=== PATIENT | male | born 1945 | race Caucasian/White ===

== ENCOUNTER 2020-01-16 07:54 | Outpatient (REF) | payer MEDICARE, SELFPAY ==
[2020-01-16 11:00] LABS: MANUAL DIFF FLAG NO
[2020-01-16 11:01] LABS: Basophils Percent Auto 0.5 % (0-2); Eosinophils Absolute Auto 0.3 X10*3/uL (0.0-0.4); Eosinophils Percent Auto 3.2 % (0-4); Hematocrit 39.8 % (42-52); Hemoglobin 14.1 g/dl (14.0-18.0); Imm Gran Abs Auto 0.03 X10*3/uL (0.00-0.03); Imm Gran Pct Auto 0.4 % (0.0-0.4); Lymphocytes Absolute Auto 2.8 X10*3/uL (1.2-4.9); Lymphocytes Percent Auto 35.9 % (20-40); Mean Corpuscular HGB Conc 35.4 g/dl (31.0-36.0); Mean Corpuscular Hemoglobin 30.9 pg (27.0-33.0); Mean Corpuscular Volume 87.3 fL (80-98); Mean Platelet Volume 10.2 fL (9.4-12.4); Monocytes Absolute Auto 0.6 X10*3/uL (0.1-1.2); Monocytes Percent Auto 7.8 % (2-11); Neutrophils Percent Auto 52.2 % (45-73); Platelet Count 219 X10*3/uL (160-400); Red Blood Count 4.56 X10*6/uL (4.60-5.80); Red Cell Distribution Width 11.9 % (11.0-16.0); White Blood Count 7.7 X10*3/uL (4.8-10.8)
[2020-01-16 11:37] LABS: Alanine Aminotransferase 31 U/L (0-40); Albumin Level 4.2 g/dL (3.5-5.0); Alkaline Phosphatase 53 U/L (39-117); Anion Gap 11 (12-20); Aspartate Amino Transferase 23 U/L (5-37); Bilirubin Total 0.9 mg/dL (0.0-1.0); Blood Urea Nitrogen 15 mg/dL (9-16); Carbon Dioxide 30 mmol/L (22-29); Chloride 104 mmol/L (96-108); Cholesterol 155 mg/dL; Estimated Glomerular Filt Rate > 60; Glucose Fasting 110 mg/dL (60-99); HDL Cholesterol 45 mg/dL; LDL Cholesterol Calculated 92 mg/dl; Potassium 4.3 mmol/l (3.3-5.1); Sodium 141 mmol/L (135-145); Total Protein 6.9 g/dL (6.5-8.0); Triglycerides 94 mg/dL
[2020-01-16 12:03] LABS: Prostate Specific Antigen < 0.05 ng/mL (<0.05-4.0); Vitamin D 25-OH Total 45.1 ng/mL (>30)
[2020-01-16 12:07] LABS: Vitamin B12 586 pg/mL (200-900)
== END 2020-01-16 07:55 | disposition home or self-care (01) ==
LOC: HO.MANLDS 07:54
PROVIDERS: PCP Internal Medicine; Visit Provider Internal Medicine
DX: Z00.00 Encounter for general adult medical examination without abnormal findings (principal)
CPT/HCPCS: 36415; 80053; 80061; 82306; 82607; 84153; 85025

== ENCOUNTER 2021-01-20 09:42 | Outpatient (REF) | payer MEDICARE, SELFPAY ==
[2021-01-20 10:58] LABS: MANUAL DIFF FLAG NO
[2021-01-20 11:00] LABS: Basophils Percent Auto 0.4 % (0-2); Eosinophils Absolute Auto 0.2 X10*3/uL (0.0-0.4); Eosinophils Percent Auto 2.8 % (0-4); Hematocrit 38.1 % (42.0-52.0); Hemoglobin 13.7 g/dl (14.0-18.0); Imm Gran Abs Auto 0.02 X10*3/uL (0.00-0.03); Imm Gran Pct Auto 0.3 % (0.0-0.4); Lymphocytes Absolute Auto 2.1 X10*3/uL (1.2-4.9); Lymphocytes Percent Auto 30.5 % (20-40); Mean Corpuscular Hemoglobin 31.4 pg (27.0-33.0); Mean Corpuscular Volume 87.4 fL (80.0-98.0); Mean Platelet Volume 10.2 fL (9.4-12.4); Monocytes Absolute Auto 0.6 X10*3/uL (0.1-1.2); Monocytes Percent Auto 8.2 % (2-11); Neutrophils Absolute Auto 3.9 x10*3/uL (2.0-8.3); Neutrophils Percent Auto 57.8 % (45-73); Platelet Count 210 X10*3/uL (160-400); Red Blood Count 4.36 X10*6/uL (4.60-5.80); White Blood Count 6.7 X10*3/uL (4.8-10.8)
[2021-01-20 11:35] LABS: Alanine Aminotransferase 37 U/L (0-40); Albumin Level 4.3 g/dL (3.5-5.0); Alkaline Phosphatase 56 U/L (39-117); Anion Gap 13 (12-20); Aspartate Amino Transferase 27 U/L (5-37); Bilirubin Total 0.7 mg/dL (0.0-1.0); Blood Urea Nitrogen 18 mg/dL (9-16); Calcium 9.5 mg/dL (8.4-10.2); Carbon Dioxide 26 mmol/L (22-29); Chloride 107 mmol/L (96-108); Estimated Glomerular Filt Rate > 60; Glucose Fasting 126 mg/dL (60-99); Potassium 4.8 mmol/L (3.3-5.1); Sodium 141 mmol/L (135-145)
[2021-01-20 11:57] LABS: Prostate Specific Antigen < 0.05 ng/mL (<0.05-4.0); Vitamin D 25-OH Total 36.5 ng/mL (>30)
[2021-01-20 12:04] LABS: Vitamin B12 589 pg/mL (200-900)
== END 2021-01-20 09:43 | disposition home or self-care (01) ==
LOC: HO.MANLDS 09:42
PROVIDERS: PCP Internal Medicine; Visit Provider Internal Medicine
DX: Z00.00 Encounter for general adult medical examination without abnormal findings (principal); Z12.5 Encounter for screening for malignant neoplasm of prostate
CPT/HCPCS: 36415; 80053; 82306; 82607; 84153; 85025

== ENCOUNTER 2021-02-04 19:55 | Outpatient (REF) | payer MEDICARE, SELFPAY | END 2021-02-04 19:56 | disposition home or self-care (01) | LOC: HO.LNP 19:55 | PROVIDERS: Visit Provider Physician Assistant | DX: J02.8 Acute pharyngitis due to other specified organisms (principal) | CPT/HCPCS: 87071 ==

== ENCOUNTER 2021-10-16 08:09 | Outpatient (REF) | payer MEDICARE, SELFPAY ==
[2021-10-16 11:15] LABS: MANUAL DIFF FLAG NO
[2021-10-16 11:37] LABS: Basophils Percent Auto 0.5 % (0-2); Eosinophils Absolute Auto 0.2 X10*3/uL (0.0-0.4); Eosinophils Percent Auto 2.4 % (0-4); Hemoglobin 14.5 g/dl (14.0-18.0); Imm Gran Abs Auto 0.02 X10*3/uL (0.00-0.03); Imm Gran Pct Auto 0.3 % (0.0-0.4); Lymphocytes Absolute Auto 2.8 X10*3/uL (1.2-4.9); Lymphocytes Percent Auto 37.3 % (20-40); Mean Corpuscular HGB Conc 36.3 g/dl (31.0-36.0); Mean Corpuscular Volume 85.7 fL (80.0-98.0); Mean Platelet Volume 10.8 fL (9.4-12.4); Monocytes Absolute Auto 0.6 X10*3/uL (0.1-1.2); NRBC Pct Auto 0.3 /100WBC (0.0-0.2); Neutrophils Absolute Auto 3.9 x10*3/uL (2.0-8.3); Neutrophils Percent Auto 51.5 % (45-73); Platelet Count 215 X10*3/uL (160-400); Red Blood Count 4.67 X10*6/uL (4.60-5.80); White Blood Count 7.5 X10*3/uL (4.8-10.8)
[2021-10-16 12:09] LABS: Alanine Aminotransferase 29 U/L (0-40); Albumin Level 4.3 g/dL (3.5-5.0); Alkaline Phosphatase 58 U/L (39-117); Anion Gap 20 (12-20); Aspartate Amino Transferase 28 U/L (5-37); Bilirubin Total 1.1 mg/dL (0.0-1.0); Blood Urea Nitrogen 15 mg/dL (9-16); Calcium 9.3 mg/dL (8.4-10.2); Carbon Dioxide 21 mmol/L (22-29); Chloride 106 mmol/L (96-108); Cholesterol 164 mg/dL; Estimated Glomerular Filt Rate > 60; Glucose Random 123 mg/dL (60-115); HDL Cholesterol 45 mg/dL; LDL Cholesterol Calculated 98 mg/dl; Potassium 4.4 mmol/L (3.3-5.1); Sodium 143 mmol/L (135-145); Total Protein 7.1 g/dL (6.5-8.0); Triglycerides 106 mg/dL
[2021-10-16 12:15] LABS: Prostate Specific Antigen < 0.05 ng/mL (<0.05-4.0); Thyroid Stimulating Hormone 0.87 uIU/mL (0.32-4.0)
== END 2021-10-16 08:10 | disposition home or self-care (01) ==
LOC: HO.MANLDS 08:09
PROVIDERS: Visit Provider Internal Medicine
DX: Z12.5 Encounter for screening for malignant neoplasm of prostate (principal); G47.30 Sleep apnea, unspecified; R03.0 Elevated blood-pressure reading, without diagnosis of hypertension
CPT/HCPCS: 36415; 80053; 80061; 84153; 84443; 85025

== ENCOUNTER 2022-06-02 10:46 | Outpatient (REF) | payer MEDICARE, SELFPAY ==
[2022-06-02 12:56] LABS: MANUAL DIFF FLAG NO
[2022-06-02 13:08] LABS: Basophils Percent Auto 0.4 % (0-2); Eosinophils Absolute Auto 0.2 X10*3/uL (0.0-0.4); Eosinophils Percent Auto 2.6 % (0-4); Hematocrit 41.9 % (42.0-52.0); Hemoglobin 14.9 g/dl (14.0-18.0); Imm Gran Abs Auto 0.03 X10*3/uL (0.00-0.03); Imm Gran Pct Auto 0.4 % (0.0-0.4); Lymphocytes Absolute Auto 2.4 X10*3/uL (1.2-4.9); Lymphocytes Percent Auto 31.1 % (20-40); Mean Corpuscular HGB Conc 35.6 g/dl (31.0-36.0); Mean Corpuscular Hemoglobin 30.8 pg (27.0-33.0); Mean Corpuscular Volume 86.6 fL (80.0-98.0); Mean Platelet Volume 10.3 fL (9.4-12.4); Monocytes Absolute Auto 0.6 X10*3/uL (0.1-1.2); Monocytes Percent Auto 7.2 % (2-11); Neutrophils Absolute Auto 4.5 x10*3/uL (2.0-8.3); Neutrophils Percent Auto 58.3 % (45-73); Platelet Count 227 X10*3/uL (160-400); Red Blood Count 4.84 X10*6/uL (4.60-5.80); Red Cell Distribution Width 12.2 % (11.0-16.0); White Blood Count 7.7 X10*3/uL (4.8-10.8)
[2022-06-02 13:42] LABS: Alanine Aminotransferase 26 U/L (0-40); Albumin Level 4.3 g/dL (3.5-5.0); Alkaline Phosphatase 65 U/L (39-117); Anion Gap 12 (12-20); Aspartate Amino Transferase 20 U/L (5-37); Bilirubin Total 1.2 mg/dL (0.0-1.0); Blood Urea Nitrogen 14 mg/dL (9-16); Calcium 9.5 mg/dL (8.4-10.2); Carbon Dioxide 31 mmol/L (22-29); Chloride 107 mmol/L (96-108); Cholesterol 167 mg/dL; Estimated Glomerular Filt Rate > 60; Glucose Random 114 mg/dL (60-115); HDL Cholesterol 46 mg/dL; LDL Cholesterol Calculated 101 mg/dl; Potassium 4.3 mmol/L (3.3-5.1); Sodium 146 mmol/L (135-145); Total Protein 6.8 g/dL (6.5-8.0); Triglycerides 102 mg/dL
[2022-06-02 14:10] LABS: Prostate Specific Antigen < 0.10 ng/mL (<0.05-4.0); Thyroid Stimulating Hormone 0.33 uIU/mL (0.32-4.0); Vitamin B12 609 pg/mL (200-900); Vitamin D 25-OH Total 42.2 ng/mL (>30)
== END 2022-06-02 10:47 | disposition home or self-care (01) ==
LOC: HO.MANLDS 10:46
PROVIDERS: Visit Provider Internal Medicine
DX: Z00.00 Encounter for general adult medical examination without abnormal findings (principal); Z12.5 Encounter for screening for malignant neoplasm of prostate; E78.00 Pure hypercholesterolemia, unspecified; E55.9 Vitamin D deficiency, unspecified; R53.83 Other fatigue
CPT/HCPCS: 36415; 80053; 80061; 82306; 82607; 84153; 84443; 85025

== ENCOUNTER 2024-01-23 14:45 | Outpatient (REF) | payer MEDICARE, SELFPAY ==
[2024-01-23 18:20] LABS: MANUAL DIFF FLAG NO
[2024-01-23 18:37] LABS: Basophils Absolute Auto 0.1 X10*3/uL (0.0-0.2); Basophils Percent Auto 0.6 % (0-2); Eosinophils Absolute Auto 0.2 X10*3/uL (0.0-0.4); Eosinophils Percent Auto 2.1 % (0-4); Hematocrit 41.8 % (42.0-52.0); Hemoglobin 15.3 g/dl (14.0-18.0); Imm Gran Abs Auto 0.02 X10*3/uL (0.00-0.03); Imm Gran Pct Auto 0.2 % (0.0-0.4); Lymphocytes Absolute Auto 2.7 X10*3/uL (1.2-4.9); Mean Corpuscular HGB Conc 36.6 g/dl (31.0-36.0); Mean Corpuscular Hemoglobin 31.7 pg (27.0-33.0); Mean Corpuscular Volume 86.5 fL (80.0-98.0); Mean Platelet Volume 10.7 fL (9.4-12.4); Monocytes Absolute Auto 0.7 X10*3/uL (0.1-1.2); Monocytes Percent Auto 7.7 % (2-11); Neutrophils Absolute Auto 4.8 x10*3/uL (2.0-8.3); Neutrophils Percent Auto 57.4 % (45-73); Platelet Count 208 X10*3/uL (160-400); Red Blood Count 4.83 X10*6/uL (4.60-5.80); Red Cell Distribution Width 11.9 % (11.0-16.0); White Blood Count 8.4 X10*3/uL (4.8-10.8)
[2024-01-23 18:46] LABS: Alanine Aminotransferase 31 U/L (0-40); Albumin Level 4.3 g/dL (3.5-5.0); Alkaline Phosphatase 62 U/L (39-117); Anion Gap 13 (12-20); Aspartate Amino Transferase 28 U/L (5-37); Bilirubin Total 0.7 mg/dL (0.0-1.0); Blood Urea Nitrogen 13 mg/dL (9-16); Calcium 9.5 mg/dL (8.4-10.2); Carbon Dioxide 28 mmol/L (22-29); Chloride 105 mmol/L (96-108); Estimated Glomerular Filt Rate > 60; Glucose Random 170 mg/dL (60-115); Potassium 3.8 mmol/L (3.3-5.1); Sodium 142 mmol/L (135-145); Total Protein 7.1 g/dL (6.5-8.0)
[2024-01-24 07:18] LABS: Estimated Average Glucose 111 mg/dL; Hemoglobin A1C 139.9515 umol/L; Hemoglobin A1c % 5.5 % (<6.0); Total Hemoglobin (HGBA1C) 3789.6495 umol/L
== END 2024-01-23 14:46 | disposition home or self-care (01) ==
LOC: HO.MANLDS 14:45
PROVIDERS: Visit Provider Internal Medicine
DX: R73.9 Hyperglycemia, unspecified (principal); R03.0 Elevated blood-pressure reading, without diagnosis of hypertension
CPT/HCPCS: 36415; 80053; 83036; 85025

== ENCOUNTER 2024-05-30 14:44 | Outpatient (REF) | payer MEDICARE, SELFPAY ==
--- OUTSIDE RECORDS SUMMARY | 2024-05-30 17:19 | XMS_ITS | Continuity of Care Document ---
Author Organization [facility], [facility] Address [address] [place] [address] Assessment Encounter Date Assessment Date Assessment LastModified by Organization Details LastModified Time 05/30/2024 05/30/2024 [id number] [place] [id number] ([employer]) MDM MODERATE MUST MEET 2 OUT OF 3 ELEMENTS: PROBLEMS, DATA OR RISK ELEMENT 1: PROBLEMS ADDRESSED 1 OR MORE CHRONIC ILLNESS WITH EXACERBATION OR 2 OR MORE STABLE CHRONIC ILLNESSES OR 1 UNDIAGNOSED NEW PROBLEM OR 1 ACUTE ILLNESS W/SYMPTOMS OR 1 ACUTE COMPLICATED INJURY ELEMENT 2: DATA MUST MEET 1 OF 3 CATEGORIES CATEGORY 1: REVIEW OF PRIOR EXTERNAL NOTES, REVIEW OF RESULTS, ORDERING OF EACH TEST, ASSESSMENT REQUIRING INDEPENDENT HISTORIAN OR CATEGORY 2: INDEPENDENT INTERPRETATION OF TESTS BY ANOTHER PHYSICIAN OR SPECIALIST OR CATEGORY 3: DISCUSSION OF MGT OR TEST INTERPRETATION W/EXTERNAL PHYSICIAN OR SPECIALIST ELEMENT 3: RISK RISK OF COMPLICATIONS AND/OR MORBIDITY OR MORTALITY OF PATIENT MANAGEMENT PROVIDER MUST THOROUGHLY DOCUMENT EACH ELEMENT THAT IS COVERED Not available 05/30/2024 14:33:27 Plan of Treatment Reminders Order Date Submit Date Provider Last Modified By Organization Details Last Modified Time Details Appointments FOLLOW UP 15 2024 02:15P M DR RICHARDS Not available Not available Not available Lab CMP, serum or plasma 2024 025 [facility], [address] [place] [address], [id number], 05/30/2024 14:32:08 CBC w/ auto diff 2024 025 [facility], [address] [place] [address], [id number], 05/30/2024 14:32:08 lipid panel, serum 2024 025 [facility], [address] [facility], [place], [address], 05/30/2024 14:32:08 PSA, serum or plasma 2024 [facility], [address], [place], [address], 05/30/2024 14:32:08 Referral None recorded . Procedures None recorded . Surgeries None recorded . Imaging None recorded . Medication Orders None recorded . Patient TargetsNo targets recorded. Patient Instructions Encounter Date Encounter Id Patient Instructions Last Modified By Organization Details Last Modified Time 05/30/2024 [id number] hip arthritis: care instructions Not available 05/30/2024 14:30:45 Reason for Referral None Reported. Problems Name Problem SNOMED Code Status Onset Date Resolution Date Notes Provider Name and Address Organization Details Recorded Time Osteoarthriti s 851613400 Active 2020 Not Available [facility] 3 20:15:59 Osteoarthriti s of hip 735970012 Active 2020 Not Available [facility] 3 20:15:59 Sleep apnea 05410389 Active 2021 Sue vargas, [facility] 5 11:24:02 Increased blood pressure 42439693 Active 2021 Sue Stinson null, [facility] 5 11:24:02 COVID-19 549346135 Active 2021 Sue Stinson null, [facility] 5 11:24:09 Dementia 58711916 Active 2022 Sue Stinson null, [facility] 5 11:24:02 Altered mental status 406534081 Active 2022 Sue Stinson null, [facility] 5 11:24:02 Hyperglycemia 39105007 Active 2022 Sue Stinson null, [facility] 5 11:24:02 Low back strain 904584144 Active 2022 Sue vargas, [facility] 5 11:24:09 Cough 29370723 Active 2022 Sue vargas [facility] 5 11:24:09 Acute bronchitis 99212356 Active 2022 Sue vargas, [facility] 5 11:24:09 Acute sinusitis 24936357 Active 2023 Sue vargas, [facility] 5 11:24:09 Problem Notes None recorded. Medical Equipment None Reported. Allergies No known drug allergies Medications Name Sig Start Date Stop Date Status Note LastModified by Organization Details LastModified Time cyclobenzap rine 10 mg tablet TAKE 1 TABLET BY MOUTH EVERY DAY IN THE EVENING FOR 10 DAYS 06/01 completed Not Available Not Available Not Available prednisone 10 mg tablet PLEASE SEE ATTACHED FOR DETAILED DIRECTION S 01/22 completed Not Available Not Available Not Available etodolac 200 mg capsule TAKE 1 CAPSULE BY MOUTH TWICE DAILY WITH MEALS 10/29 completed Not Available Not Available Not Available azithromyci n 250 mg tablet TAKE 2 TABLETS (500 MG) BY ORAL ROUTE ONCE DAILY FOR 1 DAY THEN 1 TABLET (250 MG) BY ORAL ROUTE ONCE DAILY FOR 4 DAYS 08/18 completed Not Available Not Available Not Available benzonatate 200 mg capsule TAKE 1 CAPSULE BY MOUTH THREE TIMES A DAY NEEDED FOR 10 DAYS 12/08 completed Not Available Not Available Not Available hydrocodone 5 mg-acetamin ophen 325 mg tablet TAKE 1 TABLET BY MOUTH EVERY 6 HOURS FOR 7 DAYS 10/29 completed Not Available Not Available Not Available donepezil 10 mg tablet TAKE 1 TABLET BY MOUTH EVERY DAY active Not Available Not Available No t Available meloxicam 15 mg tablet Take 1 tablet every day by oral route for 30 days. 05/16 completed Not Available Not Available Not Available tramadol 50 mg tablet TAKE 1 TABLET BY MOUTH EVERY 6 HOURS NEEDED FOR PAIN 10/14 completed Not Available Not Available Not Available amoxicillin 875 mg tablet TAKE 1 TABLET BY MOUTH EVERY 12 HOURS FOR 7 DAYS 01/22 completed Not Available Not Available Not Available ciprofloxac in 0.3 % eye drops 10/29 completed Not Available Not Available Not Available diclofenac potassium 50 mg tablet TAKE 1 TABLET BY MOUTH TWICE DAILY FOR 14 DAYS 02/04 completed Not Available Not Available Not Available codeine 10 mg-guaifene sin 100 mg/5 mL oral liquid TAKE 10 ML BY MOUTH EVERY 4 HOURS FOR 7 DAYS 08/18 completed Not Available Not Available Not Available diclofenac sodium 50 mg tablet,miguel yed release TAKE 1 TABLET BY MOUTH TWICE DAILY WITH MEALS 10/14 completed Not Available Not Available Not Available albuterol sulfate HFA 90 mcg/actuati on aerosol inhaler INHALE 2 PUFFS BY MOUTH EVERY 4 HOURS 10/14 completed Not Available Not Available Not Available amoxicillin 875 mg-potassiu m clavulanate 125 mg tablet TAKE 1 TABLET BY MOUTH EVERY 12 HOURS FOR 7 DAYS 01/22 completed Not Available Not Available Not Available tobramycin 0.3 %-dexametha sone 0.1 % eye drops,suspe nsion INSTILL 1 DROP INTO BOTH EYES 4 TIMES A DAY DIRECTED 01/22 completed Not Available Not Available Not Available Prevnar 13 (PF) 0.5 mL intramuscul ar syringe ADMINISTE R 0.5ML IN THE MUSCLE DIRECTED 04/02 completed Not Available Not Available Not Available Shingrix (PF) 50 mcg/0.5 mL intramuscul ar suspension, kit ADMINISTE R 0.5ML IN THE MUSCLE DIRECTED 04/02 completed Not Available Not Available Not Available Fluzone High-Dose [id number] (PF) 180 mcg/0.5 mL intramuscul ar syringe 05/30 completed Not Available Not Available Not Available Fluzone High-Dose Quad (PF) 240 mcg/0.7 mL IM syringe ADM 0.7ML IM UTD 01/14 completed Not Available Not Available Not Available Paxlovid 300 mg (150 mg x 2)-100 mg tablets in a dose pack TAKE 3 TABLETS BY MOUTH TWICE DAILY FOR 5 DAYS 06/01 completed Not Available Not Available Not Available Vitals Date Recorded Body height Body mass index (BMI) Body weight Heart rate Oxygen saturation Oxygen saturation in Arterial blood by Pulse oximetry Systolic blood pressure Diastolic blood pressure Provider Name and Address Organization Details Last Updated DateTime 5 167.64 cm 34.4 kg/m2 67252.1 7 g 74 /min 94 % 94 % 130 mm[Hg] 78 mm[Hg] Sue Stinson [facility] 5 14:14:12 Social History Question Answer Notes LastModified by Organizat ion Details LastModified Time Tobacco Smoking Status Never Smoker Sammie Bentonteddy [facility] 12/13/2017 13:59:58 What Is Your Level Of Alcohol Consumption? None Information not available 05/30/2018 What Is Your Level Of Caffeine Consumption? None Information not available 05/30/2018 What Was The Date Of Your Most Recent Tobacco Screening? 05/30/2024 [email or web address] Information not available 05/30/2024 Do You Or Have You Ever Used Any Other Forms Of Tobacco Or Nicotine? No Information not available 06/01/2022 Sex: Unknown Functional Status Question Answer Note LastModified by Organization D etails LastModified Time What is your exercise level? Moderate Information not available 05/30/2018 Mental Status None recorded. Family History Nothing Reported. Medical History No medical history recorded. Immunizations Vaccine Type Date Status Note Provider Nam e and Address Organization Details Recorded Time Influenza, split virus, quadrivalent, preservative 1 completed Marcos Richards DO [address] [place] [address], [phone], [facility] 2021 09:01:28 COVID-19, mRNA, LNP-S, PF, 30 mcg/0.3 mL dose 1 completed Swati Antonio [facility] 02/02/2021 13:54:12 Influenza, split virus, quadrivalent, preservative 8 completed Marcos Richards DO [address] [place] [address], [phone], [facility] 12/31/2017 12:36:24 influenza, unspecified formulation 3 completed Jeb Richards [facility] 12/27/2022 08:56:58 Respiratory syncytial virus (RSV), unspecified 3 completed Yuliana Sykes [facility] 01/03/2023 09:03:43 Influenza, split virus, quadrivalent, preservative 9 completed Sammie Patton [facility] 12/08/2018 08:09:30 Influenza, split virus, quadrivalent, preservative 0 completed Sammie Patton [facility] 12/11/2019 08:21:24 zoster recombinant 0 completed Swati Antonio [facility] 01/15/2020 10:18:49 zoster, unspecified formulation 1 completed Marcos Richards DO [address] [place] [address], [id number] 03/20/2020 15:56:10 Pneumococcal conjugate PCV 13 0 completed Swati Antonio [facility] 04/02/2020 10:22:51 COVID-19, mRNA, LNP-S, PF, 30 mcg/0.3 mL dose 1 completed Sammie Patton [facility] 04/28/2020 08:13:53 COVID-19, mRNA, LNP-S, PF, 30 mcg/0.3 mL dose 1 completed Swati Antonio [facility] 05/16/2020 11:43:34 Past Encounters Encounter ID Performer Location Encounter Start Date Encounter Closed Date Diagnosis/Indication Diagnosis SNOMED-CT Code Diagnosis ICD10 Code Diagnosis Note [id number] Marcos Richards DO [facility] [address] [facility],[place] [address] 05/30/2024 14:01:52 05/30/2024 15:05:33 Depression screening 715418968 Z13.31 Increased blood pressure 00056151 R03.0 we will cont to monitor at home and be aggressive to get it down Osteoarthritis of hip 23 5265206 M16.9 Low back strain 27882889 1 S39.012A Health Concerns Section Related Observation LastModified by Organization Detai ls LastModified Time None Recorded Concern Status LastModified by Organization Details LastModified Time None Recorded Payers Encounter Date Sequence Insurance Name Policy Number Policy Weston Covered Member ID Weston Member ID Guarantor Name 05/30/2024 1 [facility] HMO BLUE (MEDICARE REPLACEMENT HMO) [id number] Sawyer Fiore [id number] Notes Date Note Type Note Provider Name and Address Organization Details Recorded Time 5 text/html f/u bronchitis acute bronchitis: start on augmentin and prednisonecontinue on albuterol 2 puffs every four hours will fu if no improvementcont fluids and rest Marcos Richards, DO [address] [facility] [facility], [place], [address], [facility] 05/30/2024 14:34:26
--- OUTSIDE RECORDS SUMMARY | 2024-05-30 17:20 | XMS_ITS | Data Portability ---
Author Organization [facility] Address [address] [place] [address] Assessment Encounter Date Assessment Date Assessment LastModified by Organization Details LastModified Time 03/30/2022 03/30/2022 [id number] [place] [id number] (SPA MANAGER) MDM MODERATE MUST MEET 2 OUT OF [...] EACH ELEMENT THAT IS COVERED Not available 03/30/2022 10:15:38 01/23/2024 01/23/2024 [id number] [place] [id number] (SPA MANAGER) MDM MODERATE MUST MEET 2 OUT OF [...] EACH ELEMENT THAT IS COVERED Not available 01/23/2024 14:38:40 05/30/2024 05/30/2024 [id number] [place] [id number] (SPA MANAGER) MDM MODERATE MUST MEET 2 OUT OF [...] Lab CMP, serum or plasma 2024 025 [facility], [address] [place] [address], [id number], 05/30/2024 14:32:08 CBC w/ auto diff 2024 025 [facility], [address] [place] [address], [id number], 05/30/2024 14:32:08 lipid panel, serum 2024 025 [facility], [address] [place] [address], [id number], 05/30/2024 14:32:08 PSA, serum or plasma 2024 025 [facility], [address] [place] [address], [id number], 05/30/2024 14:32:08 HbA1c (hemoglob in A1c), blood 2023 024 [facility], [address] [place] [address], [address], 01/24/2024 11:46:13 CMP, serum or plasma 2023 024 [facility], [address] [place] [address], [id number], 01/24/2024 11:46:13 CBC w/ auto diff 2023 024 [facility], [address] [place] [address], [address], 01/24/2024 11:46:13 CMP, serum or plasma 2022 023 [facility], [address] [place] [address], [address], 06/03/2022 11:24:08 CBC w/ auto diff 2022 023 [facility], [address] [place] [address], [address], 06/01/2022 15:35:20 PSA, serum or plasma 2022 023 [facility], [address] [place] [address], [address], 06/01/2022 15:35:19 lipid panel, blood 2022 023 [facility], [address] [place] [address], [address], 06/03/2022 11:24:08 vitamin D, 25-hydrox y, total, serum 2022 023 [facility], [address] [place] [address], [address], 06/01/2022 15:35:20 vitamin B12, serum 2022 023 [facility], [address] [place] [address], [address], 06/01/2022 15:35:19 TSH, serum or plasma 2022 023 [facility], [address] [place] [address], [place], [address], 06/01/2022 15:35:20 HbA1c (hemoglob in A1c), blood 2022 023 [facility], [place], [address], 03/31/2022 15:28:29 HbA1c (hemoglob in A1c), blood 2022 023 [facility] [place], [address], 03/31/2022 15:28:29 Referral None recorded. Procedures None recorded. Surgeries None recorded. Imaging MRI, brain, w/o contrast 2022 023 [facility], [address] [place] [address], [address], 04/14/2022 08:25:16 Medication Orders amoxicill in 875 mg-potass ium clavulana te 125 mg tablet [address]/Pharmacy #2024, [address] [place], [address], 01/23/2024 14:22:49 prednison e 10 mg tablet [address]/Pharmacy #2024, [address] [place], [address], 01/23/2024 14:22:25 donepezil 10 mg tablet [address]/Pharmacy #2024, [address] [place], [address], 01/23/2024 14:23:22 Patient TargetsNo targets recorded. Patient Instructions Encounter Date Encounter Id Patient Instructions Last Modified By Organization Details Last Modified Time 03/30/2022 [id number] learning about high blood sugar Not available 03/30/2022 10:19:47 01/23/2024 [id number] dementia: care instructions Not available 01/23/2024 14:39:09 helping A person with dementia: care instructions Not available 01/23/2024 14:39:09 05/30/2024 [id number] hip arthritis: care instructions Not available 05/30/2024 14:30:45 Reason for Referral None Reported. Results Created Date Observation Date Name Description Value Unit Range Abnormal Flag Note LastModifiedBy Organization Detail LastModifiedTime 08/07/1907/21/2022 georgia r monit or No observ ation record ed. jvanasse Not Available 2022 09:09:36 09/30/1909/28/2022 lab* No observ ation record ed. [email or web address] [address], [place], [address], 10/04/2022 10:53:02 Result Notes None recorded. Problems Name Problem SNOMED Code Status Onset Date Resolution Date Notes Provider Name and Address Organization Details Recorded Time Osteoarthriti s 551280186 Active 2020 Not Available [facility] 3 20:15:59 Osteoarthriti s of hip 152274491 Active 2020 Not Available [facility] 3 20:15:59 Sleep apnea 27038326 Active 2021 Sue vargas [facility] 5 11:24:02 Increased blood pressure 01236345 Active 2021 Sue vargas [facility] 5 11:24:02 COVID-19 015183602 Active 2021 Sue vargas [facility] 5 11:24:09 Dementia 94293799 Active 2022 Sue vargas [facility] 5 11:24:02 Altered mental status 351038911 Active 2022 Sue Milad null, [facility] 5 11:24:02 Hyperglycemia 09955506 Active 2022 Sue vargas [facility] 5 11:24:02 Low back strain 222673702 Active 2022 Sue vargas, [facility] 5 11:24:09 Cough 00441508 Active 2022 Sue vargas, [facility] 5 11:24:09 Acute bronchitis 29702460 Active 2022 Suejoseph vargas, [facility] 5 11:24:09 Acute sinusitis 68973517 Active 2023 Suejoseph vargas, [facility] 5 11:24:09 Problem Notes None recorded. Procedures Surgical History None recorded. Imaging Results Imaging Date Name Status LastModified by [facility] Details LastModified Time 07/21/2022 holter [facility] Information not available 08/09/2022 09:09:36 09/28/2022 lab* completed [id number] [place] [address], [place], [address], 10/04/2022 10:53:02 Procedure Notes None recorded. Medical Equipment None Reported. [...] Available Not Available Not Available Fluzone High-Dose (PF) 180 mcg/0.5 mL intramuscul ar syringe [...] and Address Organization Details Last Updated DateTime 3 168.28 cm 35.2 kg/m2 58179.6 g 85 /min 98 % 98 % 138 mm[Hg] 70 mm[Hg] Marcos Richards, DO [address] [place], [address] [place] [address] Internal Medicine 3 15:03:54 Date Recorded Body height Body mass index (BMI) Body weight Heart rate Oxygen saturation Oxygen saturation in Arterial blood by Pulse oximetry Systolic blood pressure Diastolic blood pressure Provider Name and Address Organization Details Last Updated DateTime 3 168.28 cm 35.2 kg/m2 20547.2 4 g 72 /min 96 % 96 % 142 mm[Hg] 78 mm[Hg] Alisson Alexandre [facility] 3 14:54:10 Date Recorded Body height Body mass index (BMI) Body weight Heart rate Oxygen saturation Oxygen saturation in Arterial blood by Pulse oximetry Systolic blood pressure Diastolic blood pressure Provider Name and Address Organization Details Last Updated DateTime 4 167.64 cm 34.2 kg/m2 40516.5 8 g 80 /min 97 % 97 % 124 mm[Hg] 80 mm[Hg] Savanna Guthrie [facility] 4 14:25:15 Date Recorded Body height Body mass index (BMI) Body weight Heart rate Oxygen saturation Oxygen saturation in Arterial blood by Pulse oximetry Systolic blood pressure Diastolic blood pressure Provider Name and Address Organization Details Last Updated DateTime 5 167.64 cm 34.4 kg/m2 92783.1 7 g 74 /min 94 % 94 % 130 mm[Hg] 78 mm[Hg] Sue Stinson [facility] Internal [facility] 5 14:14:12 Social History Question Answer Notes LastModified by Organizat ion Details LastModified Time Tobacco Smoking Status Never Smoker [facility] 12/13/2017 13:59:58 What Is Your [...] quadrivalent, preservative 1 completed Marcos Richards DO [address] [place] [address], [phone], [facility] 2021 09:01:28 COVID-19, mRNA, LNP-S, PF, 30 mcg/0.3 mL dose 1 [facility] 02/02/2021 13:54:12 Influenza, split virus, quadrivalent, preservative 8 completed Marcos Richards DO [address] [place] [address], [phone], [facility] 12/31/2017 12:36:24 influenza, unspecified formulation 3 completed [facility] 12/27/2022 08:56:58 Respiratory syncytial virus (RSV), unspecified 3 completed Yuliana Sykes [facility] 01/03/2023 09:03:43 Influenza, split virus, quadrivalent, preservative 9 completed Sammie Patton [facility] 12/08/2018 08:09:30 Influenza, split virus, quadrivalent, preservative 0 completed Sammie Patton [facility] 12/11/2019 08:21:24 zoster recombinant 0 completed Swati Antonio [facility] 01/15/2020 10:18:49 zoster, unspecified formulation 1 completed Marcos Richards, [address] [place] [address], [phone], [facility] 03/20/2020 15:56:10 Pneumococcal conjugate PCV 13 0 completed Swati Antonio [facility] 04/02/2020 10:22:51 COVID-19, mRNA, LNP-S, PF, 30 mcg/0.3 mL dose 1 completed Sammie Patton [facility] 04/28/2020 08:13:53 COVID-19, mRNA, LNP-S, PF, 30 mcg/0.3 mL dose 1 completed Swati Antonio [facility] 05/16/2020 11:43:34 Past Encounters Encounter ID Performer Location Encounter Start Date Encounter Closed Date Diagnosis/Indication Diagnosis SNOMED-CT Code Diagnosis ICD10 Code Diagnosis Note [id number] Brittaney Rascon NP, [facility] Internal [facility] [address] [facility],[place] [address] 12/13/2017 13:46:56 12/14/2017 13:38:08 Impaired fasting glycemia 549938610 R73.01 Cough 58974057 R05 [id number] Brittaney Rascon NP, [facility] [address] [facility],[place] [address] 12/19/2017 09:58:45 12/19/2017 12:34:14 Cough 46434401 R05 Viral syndrome 860552649 B34.9 explain ineffectiv eness with antibiotic s for viral illnesses [id number] Marcos Richards [facility] [address] [place] [address],[place] [address] 05/30/2018 10:43:27 05/30/2018 15:14:22 Adult health examination 298394018 Z00.00 here for eval states is doing ok overall Active or passive immunization 968838306 Z23 [id number] Marcos Richards [facility] [address] [place] [address],[place] [address] 01/15/2020 10:15:09 01/15/2020 10:47:23 Active or passive immunization 118665328 Z23 agrees to get pneumovax Adult heal th examination 504859491 Z00.00 here for eval states is doing ok overall [id number] Marcos Richards [facility] [address],[place] [facility] [place] [address] 04/02/2020 10:04:31 04/02/2020 10:47:14 Pain of right thigh 8293955128 32796 M79.651 will take the meloxicam until we can get the xr call several days after xray with update Pain of left thigh 66761 03291 48440 M79.652 along with the hip xr wwe will add meloxicam [id number] Marcos Richards [facility] [address],[place] [address] 05/16/2020 11:38:27 05/16/2020 12:07:00 Osteoarthritis of hip 103204752 M16.9 Iliotibial band friction syndrome 149141925 M76.31 M76.32 as below will try to use a diff nsaid hold the diclofenac and we will try lodine in its place Bilateral trochanteric bursitis 7404726679 0647785 M70.61 M70.62 per ortho , we will refer him back if the pain starts to return in earnest [id number] Marcos Richards [facility] [address] [place] [address],[place] [address] 2021 08:53:44 2021 09:57:33 Active or passive immunization 251874715 Z23 agrees to get pneumovax Adult heal th examination 681831663 Z00.00 here for eval states is doing ok overall [id number] ILSA RAPP [facility] [address] [facility] [address],[place] [address] 02/04/2021 16:02:53 02/06/2021 10:28:11 Cough 34691706 R05.1 will start on cough suppressan t Acute pharyngitis 033252 003 J02.8 will start empiric treatment for sore throat [id number] Marcos Richards DO [facility] [address] [facility] [address] [address] 10/14/2021 11:49:01 10/14/2021 12:23:30 Active or passive immunization 791523173 Z23 will get Tdap and [id number] Sleep apnea 30417286 G47 .30 Increased blood pressure 87337210 R03.0 we will monitor at home and record and go over next visit [id number] Marcos Richards DO [facility] [address] [facility] [address],[place] [address] 03/30/2022 08:07:17 03/31/2022 10:43:41 Altered mental status 246900075 R41.82 sudden worsening according to several weeks agoreviewe d lab in detail with new onset of elevated glucose at 175 this is a new finding Dementia 12353894 F03.90 we have ordered a consult with neuro but waiting for apptwe will start Aricept nowhe will need an MRI of the brain Increased blood pressure 25771209 R03.0 we will cont to monitor at home and be aggressive to get it down Hyperglycemia 23873328 R 73.9 [id number] Marcos Richards DO [facility] [address] [facility] [address],[place] [address] 06/01/2022 14:55:12 06/01/2022 16:05:34 Active or passive immunization 519747215 Z23 will get Tdap and Vcqbya15 Adult heal th examination 759510322 Z00.00 here for eval states is doing ok overallhis MS is stillan issue told him he should not drivethis is a sticking point but his memory is a BIG problemwil l need follow up lab [id number] ILSA RAPP [facility] [address] [facility] [address],[place] [address] 12/08/2022 14:38:52 12/08/2022 16:01:50 Acute bronchitis 77780494 J20.8 will start on augmentin and prednisone for a cough [id number] Marcos Richards [facility] [address] [facility] [address],[place] [address] 01/23/2024 14:00:35 01/23/2024 14:44:07 Hyperglycemia 07022804 R73.9 Dementia 97138288 F03.90 we have ordered a consult with neuro but waiting for apptwe will start Aricept nowhe will need an MRI of the brain Increased blood pressure 28732013 R03.0 we will cont to monitor at home and be aggressive to get it down [id number] Marcos Richards DO [facility] [address] [facility] [address],[place] [address] 05/30/2024 14:01:52 05/30/2024 15:05:33 Depression screening 148177831 Z13.31 Increased blood pressure 19318935 R03.0 we will cont to monitor at home and be aggressive to get it down Osteoarthritis of hip 23 5797873 M16.9 Low back strain 89547360 1 S39.012A Health Concerns Section Related Observation LastModified by Organization Detai ls LastModified Time None Recorded Concern Status LastModified by Organization Details LastModified Time None Recorded Advance Directives Directive None Recorded Payers Encounter Date Sequence Insurance Name Policy Number Policy Weston Covered Member ID Weston Member ID Guarantor Name 03/30/2022 1 [facility] (MEDICARE REPLACEMENT HMO) [id number] Sawyer Fiore [id number] 06/01/2022 1 [facility] (MEDICARE [place]PLACEMENT HMO) [id number] Sawyer Fiore [id number] 12/08/2022 1 [place]MED[place]ARE [place]PLAC[place] HMO) [id number] Sawyer Fiore [id number] 01/23/2024 1 [place] HMO) [id number] Sawyer Fiore [id number] 05/30/2024 1 [facility] (MEDICARE [place]PLACEMENT HMO) [id number] Sawyer Fiore [id number] [address] Notes Date Note Type Note Provider Name and Address Organization Details Recorded Time 3 text/htm l patient is evaluated via tele/video assessment per patient consentduring current pandemicrelates that her had suddenly gotten much worse with his mental status now not recognizing people including his wifehe is getting more confusedwe put in a consult for neuro on tuesday Marcos Richards, DO [address] [facility], [place], [address], [facility] Cassie Jurado [facility] 03/30/2022 10:24:23 3 text/htm l Annual WellnessReported bypatient.Diet and Nutrition:healthy diet Fracture Risk:no history of fractures; no recent explained fracture; no sudden unexplained fractures; no previous musculoskeletal injuries Physical Activity:exercises on a regular basis; recent increase in physical activity; good physical condition Additional Lifestyle Factors:no tobacco use; no alcohol intake; stopped drinking alcohol Depression Risk:never feels sad, empty, or tearful; no loss of interest in activities; no significant changes in weight; no sleep disturbances or insomnia; no agitation; no loss of energy; no feelings of worthlessness or guilt; no thoughts of suicide; no history of depression; no history of mood disorders Hearing:no loss of hearing Vision:no vision problems The patient denies recent falls or recurrent falls. Denies instability, weakness, abnormal gait, or difficulties with movement. The patient wears correct, supportive shoes and is not otherwise severely visually impaired. The patient is full weight bearing and if using the assistance of a cane or walker feels supported and stable with the use of such devices. All medical conditions have been taken into account that may pose a risk for the patient for falls. Home darlene, carpets and/or rugs do not pose a challenge for the patient. The patient has been educated about the use of vitamin D supplementation for bone health and prevention of hypotensive episodes that may increase risk for fall. All question and concerns were answered to the patient's satisfaction. Marcos Richards DO [address] [place] [address], [phone], [facility] 06/01/2022 15:32:04 3 text/htm l f/u bronchitis acute bronchitis: start on augmentin and prednisonecontinue on albuterol 2 puffs every four hours will fu if no improvementcont fluids and rest ILSA RAPP [address] [place] [address], [phone], [facility] 12/08/2022 16:17:41 4 text/htm l here for rechk and is doing okhome bps are excellentno major issues no cp no sob walks 2 mi every day Marcos Richards DO [address] [place] [address], [phone], [facility] 01/23/2024 14:42:52 4 text/htm l Care Management - HypertensionReported bypatient.Self Care:not under emotional stress Severity:symptoms are improving; does not interfere with daily activities Associated Symptoms:no dizziness; no lightheadedness; no chest pain; no shortness of breath; no palpitations; no edema; no calf muscle cramps; no blurred vision; no confusion; no headaches; no fatigue Marcos Richards DO [address] [place] [address], [address], [facility] 01/23/2024 14:42:52 5 text/htm l f/u bronchitis acute bronchitis: start on augmentin and prednisonecontinue on albuterol 2 puffs every four hours will fu if no improvementcont fluids and rest Marcos Richards DO [address] [place] [address], [address], [facility] 05/30/2024 14:34:26
[2024-05-30 18:06] LABS: MANUAL DIFF FLAG NO
[2024-05-30 18:13] LABS: Basophils Percent Auto 0.4 % (0-2); Eosinophils Absolute Auto 0.2 X10*3/uL (0.0-0.4); Eosinophils Percent Auto 2.3 % (0-4); Hematocrit 38.6 % (42.0-52.0); Hemoglobin 14.4 g/dl (14.0-18.0); Imm Gran Abs Auto 0.02 X10*3/uL (0.00-0.03); Imm Gran Pct Auto 0.3 % (0.0-0.4); Lymphocytes Absolute Auto 2.4 X10*3/uL (1.2-4.9); Lymphocytes Percent Auto 29.5 % (20-40); Mean Corpuscular HGB Conc 37.3 g/dl (31.0-36.0); Mean Corpuscular Hemoglobin 31.7 pg (27.0-33.0); Mean Platelet Volume 10.5 fL (9.4-12.4); Monocytes Absolute Auto 0.6 X10*3/uL (0.1-1.2); Monocytes Percent Auto 7.8 % (2-11); Neutrophils Absolute Auto 4.8 x10*3/uL (2.0-8.3); Neutrophils Percent Auto 59.7 % (45-73); Platelet Count 214 X10*3/uL (160-400); Red Blood Count 4.54 X10*6/uL (4.60-5.80)
[2024-05-30 18:35] LABS: Alanine Aminotransferase 27 U/L (0-40); Albumin Level 4.1 g/dL (3.5-5.0); Alkaline Phosphatase 53 U/L (39-117); Anion Gap 9 (12-20); Aspartate Amino Transferase 26 U/L (5-37); Bilirubin Total 0.6 mg/dL (0.0-1.0); Blood Urea Nitrogen 14 mg/dL (9-16); Calcium 9.2 mg/dL (8.4-10.2); Carbon Dioxide 28 mmol/L (22-29); Chloride 109 mmol/L (96-108); Estimated Glomerular Filt Rate > 60; Glucose Random 125 mg/dL (60-115); Potassium 4.3 mmol/L (3.3-5.1); Sodium 142 mmol/L (135-145)
[2024-05-30 18:51] LABS: Prostate Specific Antigen < 0.10 ng/mL (<0.05-4.0)
== END 2024-05-30 14:45 | disposition home or self-care (01) ==
LOC: HO.MANLDS 14:44
PROVIDERS: Visit Provider Internal Medicine
DX: Z12.5 Encounter for screening for malignant neoplasm of prostate (principal); R03.0 Elevated blood-pressure reading, without diagnosis of hypertension
CPT/HCPCS: 36415; 80053; 84153; 85025